=== PATIENT | male | born 1970 | race American Indian/Alaskan Native ===

== ENCOUNTER 2019-01-28 17:46 | Emergency (ER) | payer OTHER ==
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
[2019-01-28] MEDS ORDERED: PERCOCET 5/325 PO ONE (21:52)
[2019-01-29 00:15] VITALS: BP 122/77
== END 2019-01-29 00:08 | disposition home or self-care (01) ==
LOC: ED 17:46
DX: S82.202A Unspecified fracture of shaft of left tibia, initial encounter for closed fracture (principal); V29.20XA Unspecified motorcycle rider injured in collision with unspecified motor vehicles in nontraffic accident, initial encounter; Y93.89 Activity, other specified; Y92.488 Other paved roadways as the place of occurrence of the external cause; Y99.8 Other external cause status